=== PATIENT | female | born 1990 | race African-American/Black ===

== ENCOUNTER 2021-01-17 22:59 | Emergency (ER) | payer OTHER ==
[~2021-01-17] VITALS: Ht 160 cm; Wt 88.0 kg
[2021-01-17] MEDS ORDERED: ONDANSETRON 4MG ODT PO STA (23:54)
[2021-01-18] MEDS ORDERED: KETOROLAC 60MG/2ML VIAL IM ONE
[2021-01-18] MEDS ORDERED: CLONIDINE 0.1MG TABLET PO ONE
[2021-01-18] MEDS ORDERED: ONDANSETRON 4MG ODT PO ONE (01:00)
[2021-01-18 01:15] LABS: BASOPHILS % 0.6 % (0.0-2.0); CHLORIDE 105 mEq/L (98-107); EOSINOPHILS % 0.9 % (0.0-5.0); HEMATOCRIT. 31.5 % (36.0-48.0); HEMOGLOBIN. 10.3 g/dL (12.0-16.0); LYMPHOCYTES % 17.6 % (20.0-50.0); MEAN CORPUSCULAR HEMOGLOBIN 23.5 pg (28.0-32.0); MEAN CORPUSCULAR VOLUME 72.1 fL (81.0-99.0); MEAN PLATELET VOLUME 7.5 fl (7.4-10.4); MONOCYTES % 10.3 % (2.0-8.0); NEUTROPHILS % 70.6 % (40.0-76.0); PLATELET 271 x1000/uL (130-400); RED BLOOD CELL COUNT 4.37 mill/uL (4.2-5.4)
[2021-01-18 01:34] LABS: CLARITY URINE CLOUDY (CLEAR); COLOR URINE YELLOW (YELLOW); KETONES URINE TRACE (NEGATIVE); LEUKOCYTE ESTERASE URINE 3+ (NEGATIVE); NITRITE URINE NEGATIVE (NEGATIVE); OCCULT BLOOD URINE 1+ (NEGATIVE); PROTEIN URINE 1+ (NEGATIVE); SPECIFIC GRAVITY URINE 1.034 (1.005-1.030); UROBILINOGEN URINE 0.2 E.U./dL (0.2-1.0)
[2021-01-18] MEDS ORDERED: CEPHALEXIN 250MG CAPSULE PO NR (02:30)
[2021-01-18] MEDS ORDERED: CEPH500C2 MT (03:29)
[2021-01-18 03:40] VITALS: BP 123/68
== END 2021-01-18 03:43 | disposition home or self-care (01) ==
LOC: ER 22:59
DX: N39.0 Urinary tract infection, site not specified (principal); F17.290 Nicotine dependence, other tobacco product, uncomplicated; I10 Essential (primary) hypertension
CPT/HCPCS: 36415; 71045; 80053; 81003; 81025; 83690; 85025; 99284; 99406; Q0162; J1885